=== PATIENT | female | born 1990 | race Caucasian/White ===

== ENCOUNTER 2016-05-01 15:35 | Emergency (ER) | payer SELFPAY ==
[2016-05-01 15:43] VITALS: TEMP 98.7; BMI 56.7
--- NOTE | 2016-05-01 16:17 | DIRPT ---
CLINICAL DATA: Chest pain and cough EXAM: CHEST 2 VIEW COMPARISON: None. FINDINGS: There is no edema or consolidation. The heart size and pulmonary vascularity are normal. No adenopathy. No pneumothorax. No bone lesions. IMPRESSION: No edema or consolidation. Electronically Signed By: Pj Dawson III, M.D. On: 05/01/2016 16:15
[2016-05-01] MEDS ORDERED: DIAZEPAM 5 MG TAB PO ONE (17:09)
[2016-05-01] MEDS ORDERED: KETOROLAC TROMETHAMINE 10 MG TAB PO ONE (17:09)
--- NOTE | 2016-05-01 17:29 | EDPRACDOC ---
- General Information Chief Complaint: Chest Pain Stated Complaint: CP LT SIDED SHARP CP Time Seen by Provider: 05/01/16 16:54 Information Source: Patient Mode of Arrival: Car Home Medications: Home Medications Diazepam [Valium] 5 mg PO BID #10 tablet 05/01/16 Meloxicam [Mobic] 7.5 mg PO BID #20 tab 05/01/16 Allergies/Adverse Reactions: Allergies Allergy/AdvReac Type Severity Reaction Status Date / Time orange (food color) Allergy Rash-Genera Verified 05/01/16 15:42 lized - History of Present Illness Onset: LAST PM HPI: PT PRESENTS TODAY WITH SUBSTERNAL CHEST WALL PAIN THAT BEGAN SUDDENLY AT REST. PT STATES THAT BEFORE THE CHEST PAIN SHE BEGAN TO FEEL SHOB AND DIZZY, BUT THESE SYMPTOMS HAVE RESOLVED. PT TEARFUL AND CONCERNED ABOUT HER HEART. STATES THAT "TAKING A DEEP BREATH MAKES ME FEEL MUCH BETTER". NO OFFICIAL DX OF ANXIETY. PT SMOKER, BUT NO OTHER RISK FACTORS FOR CARDIAC CONDITIONS. HEART SCORE 0. Chest Pain Location: Reports: Substernal Pain Radiation: Reports: None Symptoms Occur: Reports: Suddenly Cardiac Risk Factors: Reports: Smoker Cardiac History of: Reports: None PE Risk Factors: Reports: None Medications within 24 Hours: Reports: None Prehospital Care: Reports: None Pain Came On: Reports: Suddenly Pain Status: Present Now Pain Description: Reports: Pressure Pain Severity: Moderate Pain Worsens With: Reports: Nothing Pain Improves With: Reports: Rest, Other (BREATHING EXERCISES) Associated Signs and Symptoms: Reports: SOB ED Past Medical History - History Reviewed Yes Nurses notes reviewed and agree except as marked - Patient Medical History Psychological History: Denies: Depression Surgical History: Reports: Cholecystectomy, Other (BTL) - Social Medical History Smoking Status: Heavy tobacco smoker (5 or more cigarettes/day or daily pipe/ cigar) EDM Review of Systems - Review of Systems ROS Negative Except as Marked: Yes All systems reviewed and were negative except as marked Constitutional: No Symptoms Reported Eyes: No Symptoms Reported Ears: No Symptoms Reported Throat: No Symptoms Reported Nose: No Symptoms Reported Respiratory: Cough (RECENT COUGH THAT HAS RESOLVED) Cardiovascular: Chest Pain Gastrointestinal: No Symptoms Reported Genitourinary: No Symptoms Reported Neurological: Dizziness Musculoskeletal: No Symptoms Reported Psychiatric: Anxiety - Physical Exam Constitutional: Alert (Awake), Distress (TEARFUL; ANXIOUS APPEARING) Oriented to: Time, Person, Place Last recorded Vital Signs: Last Vital Signs Temp 98.7 F 05/01/16 15:39 Pulse 90 05/01/16 16:49 Resp 20 05/01/16 16:49 BP 161/101 H 05/01/16 16:49 Pulse Ox 98 05/01/16 16:49 Oxygen Pulse Oxygen Saturation 98 O2 Device Room Air Oxygen Flow Rate Fraction of Inspired Oxygen ( FIO2) - HEENT Head: Normal Eye Exam: Normal Neck: Normal, Denies Pain, Midline - Respiratory/Cardiovascular Respiratory: Normal - CTA Cardiovascular: Normal - GI Palpation: Normal Tenderness: Non tender - Musculoskeletal Back: Normal Extremities: Normal - Integumentary Skin: Normal Lymphatics: Normal - Neurologic Cerebellar: Normal Mood Description: Normal Thought: Coherent Perception: Normal ED Chest Pain Exam - Respiratory/Cardiovascular Respiratory: Normal - CTA Cardiovascular/Chest: Normal Chest Palpation: Normal - Action ASA given in the ED: No - EKG EKG #1 EKG Time: 17:17 -: Yes EKG interpreted by me Rate: bpm: 78 [place]: Normal Rhythm: NSR Block: None Hypertrophy: None ST: Normal Decision Time to Discharge: 17:27 - Departure Disposition: Home Condition: Good Final Diagnosis: Chest wall pain Instructions: Chest Pain (ED), Chest Wall Pain Education/Counseling Given To: Patient Education/Counseling Given Regarding: Diagnosis, Treatment, Follow Up Referrals: None,No Provider [Primary Care Provider] - One Week DALLAS SILVA [NonStaff] - One Week Bassam Carias MD [Staff Physician] - One Week Bandar Chu MD [Staff Physician] - One Week Prescriptions: Diazepam [Valium] 5 mg PO BID #10 tablet Meloxicam [Mobic] 7.5 mg PO BID #20 tab Additional Instructions: REST AND PLENTY OF FLUIDS. IF YOU ARE INTERESTED IN A HOLTER MONITOR, YOU WILL NEED TO CONTACT A PCP OR STRAIGHT KNIFE MACHINE CUTTER.
[2016-05-01 17:40] VITALS: BP 166/92; PULSE 96
== END 2016-05-01 17:35 | disposition home or self-care (01) ==
LOC: ED 15:35 → EDMC 17:35
DX: R07.89 Other chest pain (principal)
CPT/HCPCS: 71020; 93005; 99283; J3490